=== PATIENT | female | born 1945 | race Caucasian/White ===

== ENCOUNTER 2017-11-01 12:40 | Inpatient (IN) | payer MEDICARE, BC ==
[~2017-11-01] VITALS: Ht 154.9 cm; Wt 55.4 kg
[~2017-11-01 12:40] MED LIST: ASPI-496 PO; ATOR10TA9 PO; CALC1CAP8 PO; CRAN500T2 PO; ENAL20TA PO; FURO-93 PO; GARL10002 PO; IMIP50TA3 PO; MULT-257 PO; NADO40TA PO; SUMA50TA4 PO; VITA PO
[2017-11-01] MEDS ORDERED: THIA50TA PO (12:59)
[2017-11-01] MEDS ORDERED: ASPI-515 PO (12:59)
[2017-11-01 13:16] LABS: BASOPHILS # (AUTO) 0.02 x10^3/uL (0-0.1); BASOPHILS % (AUTO) 0 % (0-1); EOSINOPHILS # (AUTO) 0.03 x10^3/uL (0-0.4); EOSINOPHILS % (AUTO) 0 % (1-7); LYMPHOCYTES # (AUTO) 1.46 x10^3/uL (1-3.4); LYMPHOCYTES % (AUTO) 21 % (22-44); MD NO; MEAN CORPUSCULAR HEMOGLOBIN 31.8 pg (27.0-34.8); MEAN CORPUSCULAR HGB CONC 34.2 g/dL (32.4-35.8); MEAN CORPUSCULAR VOLUME 93.1 fL (80-100); MEAN PLATELET VOLUME 8.5 fL (7.4-10.4); MONOCYTES # (AUTO) 0.61 x10^3/uL (0.2-0.8); MONOCYTES % (AUTO) 9 % (2-9); NEUTROPHILS # (AUTO) 4.89 x10^3/uL (1.8-6.8); NEUTROPHILS % (AUTO) 70 % (42-75); PLATELET COUNT 194 x10^3/uL (130-400); RED BLOOD COUNT 4.12 x10^6/uL (3.82-5.3); RED CELL DISTRIBUTION WIDTH 14.1 % (9.6-15.2)
[2017-11-01 13:25] LABS: INTERNATIONAL NORMALIZED RATIO 0.98 (0.93-1.1); PROTHROMBIN TIME 10.2 Seconds (9.6-11.5)
[2017-11-01 13:29] LABS: ALBUMIN 3.5 g/dL (3.4-5.0); ANION GAP 10 mmol/L (5-15); CALCIUM 8.6 mg/dL (8.5-10.1); CHLORIDE 111 mmol/L (98-107); CREATININE 0.71 mg/dL (0.55-1.02)
[2017-11-01 13:33] LABS: TROPONIN I 0.069 ng/mL (0.000-0.045)
[2017-11-01] MEDS ORDERED: SODIUM CHLORIDE FLUSH 10ML SYR IVF PRN (14:00)
[2017-11-01] MEDS ORDERED: POLYETHYLENE GLYCOL 17 GM PACKET PO PRN (14:30)
[2017-11-01] MEDS ORDERED: DOCUSATE 100 MG CAPSULE PO PRN (14:30)
[2017-11-01] MEDS ORDERED: BISACODYL 10 MG SUPP PR PRN (14:30)
[2017-11-01] MEDS ORDERED: ONDANSETRON 2MG/ML, 2ML IVPush PRN (14:30)
[2017-11-01] MEDS ORDERED: hydrALAzine 20 MG/ML, 1ML IVPush PRN (14:30)
[2017-11-01 14:50] VITALS: BP 131/68
[2017-11-01] MEDS: FUROSEMIDE 20 MG/2 ML IV SCH (15:00)
[2017-11-01] MEDS ORDERED: SODIUM CHLORIDE 0.9% 1,000 ML IV SCH (15:52)
[2017-11-01] MEDS ORDERED: MIDAZOLAM 1 MG/ML, 5ML ONE (16:13)
[2017-11-01] MEDS ORDERED: FENTANYL PF 100 MCG/2ML ONE (16:14)
[2017-11-01] MEDS ORDERED: CEFAZOLIN 1,000 MG ONE (16:14)
[2017-11-01] MEDS ORDERED: CEFAZOLIN PMX 1GM/50ML 50 ML ONE (16:14)
[2017-11-01] MEDS ORDERED: LIDOCAINE/PF 1%, 30ML ONE (16:14)
[2017-11-01] MEDS ORDERED: HYDROcodone/APAP 5/325 TABLET PO PRN (18:00)
[2017-11-01] MEDS ORDERED: ACETAMINOPHEN 325 MG TABLET PO PRN (18:00)
[2017-11-01] MEDS ORDERED: HOLD MEDICATION MC PRN (18:00)
[2017-11-01] MEDS ORDERED: ZOLPIDEM 5MG TABLET PO PRN (18:00)
[2017-11-01 18:40] VITALS: BP 137/67
[2017-11-01 18:57] LABS: TROPONIN I 0.396 ng/mL (0.000-0.045)
[2017-11-01] MEDS: ATORVASTATIN 10 MG TABLET PO SCH (20:37)
[2017-11-02] MEDS: CEFAZOLIN PMX 1GM/50ML 50 ML IVPB SCH ×2 (00:32→12:23)
[2017-11-02 00:53] VITALS: BP 162/89
[2017-11-02 04:55] LABS: BASOPHILS # (AUTO) 0.01 x10^3/uL (0-0.1); BASOPHILS % (AUTO) 0 % (0-1); EOSINOPHILS # (AUTO) 0.09 x10^3/uL (0-0.4); EOSINOPHILS % (AUTO) 1 % (1-7); LYMPHOCYTES # (AUTO) 1.24 x10^3/uL (1-3.4); LYMPHOCYTES % (AUTO) 16 % (22-44); MD NO; MEAN CORPUSCULAR HEMOGLOBIN 31.6 pg (27.0-34.8); MEAN CORPUSCULAR HGB CONC 33.7 g/dL (32.4-35.8); MEAN CORPUSCULAR VOLUME 93.8 fL (80-100); MEAN PLATELET VOLUME 8.5 fL (7.4-10.4); MONOCYTES # (AUTO) 0.67 x10^3/uL (0.2-0.8); MONOCYTES % (AUTO) 9 % (2-9); NEUTROPHILS % (AUTO) 74 % (42-75); PLATELET COUNT 191 x10^3/uL (130-400); RED BLOOD COUNT 4.29 x10^6/uL (3.82-5.3); RED CELL DISTRIBUTION WIDTH 14.2 % (9.6-15.2)
[2017-11-02 05:02] LABS: ANION GAP 6 mmol/L (5-15); CALCIUM 8.4 mg/dL (8.5-10.1); CHLORIDE 108 mmol/L (98-107)
[2017-11-02 05:06] LABS: CHOL/HDL RATIO 2.4; CHOLESTEROL, TOTAL 132 mg/dL (140-239); HDL CHOL % 42 % (28-40); HDL CHOLESTEROL (DIRECT) 56 mg/dL (40-60); LDL CHOLESTEROL,CALCULATED 43 mg/dL (54-169); LDL/HDL RATIO 0.8 (0.5-3.0); TRIGLYCERIDES 165 mg/dL (50-200); VLDL CHOLESTEROL 33 mg/dL (0-25)
[2017-11-02 06:52] VITALS: BP 167/67
[2017-11-02] MEDS: MULTIVITAMIN 1 TABLET PO SCH (08:29)
[2017-11-02] MEDS: THIAMINE 100MG TABLET PO SCH (08:29)
[2017-11-02] MEDS: ACETAMINOPHEN 325 MG TABLET PO PRN (08:38)
[2017-11-02] MEDS ORDERED: ASPIRIN 81 MG TABLET EC PO SCH (09:00)
[2017-11-02] MEDS ORDERED: REGADENOSON 0.4 MG/5 ML SYRINGE ONE (10:25)
[2017-11-02 12:12] LABS: TROPONIN I 0.859 ng/mL (0.000-0.045)
[2017-11-02 12:22] VITALS: BP 133/80
[2017-11-02] MEDS: FUROSEMIDE 20 MG/2 ML IV SCH (12:23)
[2017-11-02] MEDS: METOPROLOL TARTRATE 25 MG TABLET PO SCH ×2 (12:25→20:25)
[2017-11-02] MEDS: ASPIRIN 81 MG TABLET EC PO SCH (12:25)
[2017-11-02 20:00] VITALS: BP 160/93
[2017-11-02] MEDS: ATORVASTATIN 10 MG TABLET PO SCH (20:25)
[2017-11-03 01:26] VITALS: BP 145/80
[2017-11-03 04:34] LABS: BASOPHILS # (AUTO) 0.02 x10^3/uL (0-0.1); BASOPHILS % (AUTO) 0 % (0-1); EOSINOPHILS # (AUTO) 0.14 x10^3/uL (0-0.4); EOSINOPHILS % (AUTO) 2 % (1-7); LYMPHOCYTES # (AUTO) 1.48 x10^3/uL (1-3.4); LYMPHOCYTES % (AUTO) 21 % (22-44); MD NO; MEAN CORPUSCULAR HEMOGLOBIN 31.4 pg (27.0-34.8); MEAN CORPUSCULAR HGB CONC 33.9 g/dL (32.4-35.8); MEAN CORPUSCULAR VOLUME 92.7 fL (80-100); MEAN PLATELET VOLUME 8.3 fL (7.4-10.4); MONOCYTES # (AUTO) 0.74 x10^3/uL (0.2-0.8); MONOCYTES % (AUTO) 11 % (2-9); NEUTROPHILS # (AUTO) 4.67 x10^3/uL (1.8-6.8); NEUTROPHILS % (AUTO) 66 % (42-75); PLATELET COUNT 182 x10^3/uL (130-400); RED BLOOD COUNT 4.26 x10^6/uL (3.82-5.3); RED CELL DISTRIBUTION WIDTH 13.8 % (9.6-15.2)
[2017-11-03 04:46] LABS: CHLORIDE 107 mmol/L (98-107)
[2017-11-03 04:51] LABS: ANION GAP 7 mmol/L (5-15); CALCIUM 8.2 mg/dL (8.5-10.1); CREATININE 0.66 mg/dL (0.55-1.02)
[2017-11-03 05:41] VITALS: BP 146/79
[2017-11-03] MEDS: METOPROLOL TARTRATE 25 MG TABLET PO SCH (05:44)
[2017-11-03 07:15] VITALS: BP 135/86
[2017-11-03] MEDS ORDERED: POTASSIUM CHLORIDE 20 MEQ TAB.ER.PRT PO ONE (08:30)
[2017-11-03] MEDS: FUROSEMIDE 20 MG/2 ML IV SCH (09:57)
[2017-11-03] MEDS: ASPIRIN 81 MG TABLET EC PO SCH (09:59)
[2017-11-03] MEDS: MULTIVITAMIN 1 TABLET PO SCH (09:59)
[2017-11-03] MEDS: THIAMINE 100MG TABLET PO SCH (09:59)
[2017-11-03] MEDS: ACETAMINOPHEN 325 MG TABLET PO PRN (10:07)
[2017-11-03] MEDS ORDERED: POTA10TA11 PO (10:09)
[2017-11-03] MEDS ORDERED: FURO-93 PO (10:09)
== END 2017-11-03 14:30 | disposition home or self-care (01) | DRG 242 ==
LOC: ED 13:47 → EDIP 13:59 → 5SO 14:40 → DCLOUNGE 11-03 14:08
PROVIDERS: ADMIT Hospitalist; ATTEND Hospitalist
PROC: 02H63JZ Insertion of Pacemaker Lead into Right Atrium, Percutaneous Approach (ICD-10-PCS; principal; 2017-11-01)
PROC: 0JH606Z Insertion of Pacemaker, Dual Chamber into Chest Subcutaneous Tissue and Fascia, Open Approach (ICD-10-PCS; 2017-11-01)
PROC: 02HK3JZ Insertion of Pacemaker Lead into Right Ventricle, Percutaneous Approach (ICD-10-PCS; 2017-11-01)
DX: I21.4 Non-ST elevation (NSTEMI) myocardial infarction (principal); I50.33 Acute on chronic diastolic (congestive) heart failure; I44.1 Atrioventricular block, second degree; F32.9 Major depressive disorder, single episode, unspecified; E78.5 Hyperlipidemia, unspecified; I35.1 Nonrheumatic aortic (valve) insufficiency; I11.0 Hypertensive heart disease with heart failure; E87.6 Hypokalemia; G43.909 Migraine, unspecified, not intractable, without status migrainosus; E78.00 Pure hypercholesterolemia, unspecified; I77.819 Aortic ectasia, unspecified site; Z82.49 Family history of ischemic heart disease and other diseases of the circulatory system; Z83.3 Family history of diabetes mellitus; Z87.891 Personal history of nicotine dependence; Z79.899 Other long term (current) drug therapy; Z79.1 Long term (current) use of non-steroidal anti-inflammatories (NSAID)
CPT/HCPCS: 33208; 36415; 71045; 78452; 80048; 80061; 82040; 83735; 84484; 85025; 85610; 93005; 93017; 93306; 96374; 99156; 99157; C1779; C1785; C1892; J0690; J2250; J2785; J3010; J3490; A9502; C9898; J1940

== ENCOUNTER → 2019-12-23 | Outpatient (CLI) | payer MEDICARE, BC ==
[~2019-12-23] MED LIST changes: +ASPI-515 PO; -ENAL20TA PO; +ENAL20TA9 PO; -NADO40TA PO; +NADO40TA2 PO; +POTA10TA11 PO; +THIA50TA4 PO
== END | disposition home or self-care (01) ==
LOC: CFH 06:43
PROVIDERS: ATTEND Internal Medicine Cardiovascular Disease
DX: I08.3 Combined rheumatic disorders of mitral, aortic and tricuspid valves (principal); I10 Essential (primary) hypertension; E78.5 Hyperlipidemia, unspecified
CPT/HCPCS: 93306

== ENCOUNTER 2020-10-11 09:42 | Day surgery (SDC) | payer MEDICARE, BC ==
[~2020-10-11] VITALS: Ht 154.9 cm; Wt 54.0 kg
[~2020-10-11 09:42] MED LIST changes: -ASPI-515 PO; +ASPI-963 PO; -CRAN500T2 PO; +CRAN500T3 PO
[2020-10-11] MEDS ORDERED: PROPOFOL 10 MG/ML, 20ML ONE (10:02)
[2020-10-11] MEDS ORDERED: FURO40TA6 PO (10:22)
[2020-10-11] MEDS ORDERED: ASCO500T8 PO (10:22)
[2020-10-11] MEDS ORDERED: POTA10TA6 PO (10:22)
[2020-10-11] MEDS ORDERED: VITA1CAP PO (10:22)
[2020-10-11] MEDS ORDERED: SPIR25TA5 PO (10:23)
[2020-10-11] MEDS ORDERED: AMLO-211 PO (10:23)
[2020-10-11] MEDS ORDERED: LOSA100T14 PO (10:23)
[2020-10-11] MEDS ORDERED: SODIUM CHLORIDE 0.9% 1,000 ML IV ONE (10:30)
[2020-10-11 10:31] VITALS: BP 116/57
[2020-10-11 10:39] LABS: BASOPHILS % (AUTO) 1 % (0-1); EOSINOPHILS % (AUTO) 2 % (1-7); LYMPHOCYTES % (AUTO) 25 % (22-44); MEAN CORPUSCULAR HEMOGLOBIN 32.6 pg (27.0-34.8); MEAN CORPUSCULAR HGB CONC 33.6 g/dL (32.4-35.8); MEAN PLATELET VOLUME 8.7 fL (7.4-10.4); MONOCYTES % (AUTO) 10 % (2-9); NEUTROPHILS % (AUTO) 62 % (42-75); PLATELET COUNT 222 x10^3/uL (130-400); RED CELL DISTRIBUTION WIDTH 13.9 % (9.6-15.2)
[2020-10-11 10:49] LABS: ALANINE AMINOTRANSFERASE 40 U/L (12-78); ALBUMIN 4.1 g/dL (3.4-5.0); ANION GAP 9 mmol/L (5-15); CALCIUM 9.5 mg/dL (8.5-10.1); CHLORIDE 106 mmol/L (98-107); CREATININE 0.86 mg/dL (0.55-1.02)
[2020-10-11 10:51] LABS: ALKALINE PHOSPHATASE 50 U/L (45-117); BILIRUBIN,TOTAL 0.8 mg/dL (0.2-1.0); TOTAL PROTEIN 8.1 g/dL (6.4-8.2)
[2020-10-11] MEDS ORDERED: FENTANYL PF 100 MCG/2ML ONE (12:18)
[2020-10-11] MEDS ORDERED: VERAPAMIL 2.5 MG/ML, 2ML ONE (12:19)
[2020-10-11] MEDS ORDERED: LIDOCAINE-MPF 1%, 5ML ONE (12:19)
[2020-10-11] MEDS ORDERED: HEPARIN 1,000 UNITS/ML, 10ML ONE (12:19)
[2020-10-11] MEDS ORDERED: MIDAZOLAM 1 MG/ML, 2ML ONE (12:23)
== END 2020-10-11 15:48 | disposition home or self-care (01) ==
LOC: CACL 09:42
PROVIDERS: ATTEND Internal Medicine Cardiovascular Disease
DX: I34.0 Nonrheumatic mitral (valve) insufficiency (principal); I25.10 Atherosclerotic heart disease of native coronary artery without angina pectoris; I10 Essential (primary) hypertension; E78.5 Hyperlipidemia, unspecified; Z79.82 Long term (current) use of aspirin; Z79.899 Other long term (current) drug therapy; Z20.822 Contact with and (suspected) exposure to COVID-19; Z95.0 Presence of cardiac pacemaker
CPT/HCPCS: 36415; 80053; 85025; 87635; 93312; 93321; 93325; 93460; 99156; 99157; C1769; C1894; J1644; J2250; J2704; J3010; Q9967

== ENCOUNTER 2020-11-28 13:30 | Inpatient (IN) | payer MEDICARE, BC ==
[~2020-11-28] VITALS: Ht 156.2 cm; Wt 55.0 kg
[~2020-11-28 13:30] MED LIST changes: +AMLO-211 PO; +ASCO500T8 PO; +FURO40TA6 PO; +LOSA100T14 PO; +POTA10TA6 PO; +SPIR25TA5 PO; +VITA1CAP PO
[2021-01-02] MEDS ORDERED: SODIUM CHLORIDE 0.9% 1,000ML IV SCH (06:30)
[2021-01-02] MEDS ORDERED: ONDANSETRON 2MG/ML, 2ML IV PRN ×2 (06:30→09:30)
[2021-01-02] MEDS ORDERED: Calcium PO (06:38)
[2021-01-02 06:41] VITALS: BP 108/54
[2021-01-02 07:18] LABS: BASOPHILS % (AUTO) 0 % (0-1); EOSINOPHILS % (AUTO) 2 % (1-7); LYMPHOCYTES % (AUTO) 23 % (22-44); MEAN CORPUSCULAR HGB CONC 34.5 g/dL (32.4-35.8); MEAN PLATELET VOLUME 8.2 fL (7.4-10.4); MONOCYTES % (AUTO) 11 % (2-9); NEUTROPHILS % (AUTO) 64 % (42-75); PLATELET COUNT 215 x10^3/uL (130-400); RED BLOOD COUNT 4.17 x10^6/uL (3.82-5.3); RED CELL DISTRIBUTION WIDTH 13.7 % (9.6-15.2)
[2021-01-02 07:20] LABS: ANION GAP 6 mmol/L (5-15); CALCIUM 9.6 mg/dL (8.5-10.1); CHLORIDE 107 mmol/L (98-107); CREATININE 0.84 mg/dL (0.55-1.02)
[2021-01-02] MEDS ORDERED: FENTANYL PF 250 MCG/5ML ONE (07:28)
[2021-01-02 07:35] LABS: INTERNATIONAL NORMALIZED RATIO 0.98 (0.93-1.1); PROTHROMBIN TIME 10.5 Seconds (9.6-11.5)
[2021-01-02] MEDS ORDERED: PROTAMINE SULFATE 10 MG/ML, 5ML ONE (09:15)
[2021-01-02] MEDS ORDERED: HEPARIN 1,000 UNITS/ML, 10ML ONE ×2 (09:24)
[2021-01-02] MEDS ORDERED: SUGAMMADEX 200 MG/2 ML IVPush ONE (09:25)
[2021-01-02] MEDS: ASPIRIN 81 MG TABLET EC PO SCH (09:30)
[2021-01-02] MEDS ORDERED: SUMATRIPTAN 50 MG TABLET PO SCH (09:30)
[2021-01-02] MEDS ORDERED: hydrALAzine 20 MG/ML, 1ML IVPush PRN (09:30)
[2021-01-02] MEDS ORDERED: MAALOX/HYOSCYAMINE/LIDOCAINE 45 ML BTL PO PRN (09:30)
[2021-01-02] MEDS ORDERED: LABETALOL 5MG/ML, 20ML IVPush PRN (09:30)
[2021-01-02] MEDS: SODIUM CHLORIDE 0.9% 1,000 ML IV SCH ×2 (09:30→17:25)
[2021-01-02] MEDS ORDERED: ACETAMINOPHEN 325 MG TABLET PO PRN (09:30)
[2021-01-02] MEDS ORDERED: HYDROcodone/APAP 5/325 TABLET PO PRN (09:30)
[2021-01-02] MEDS: CLOPIDOGREL 75 MG TABLET PO SCH (13:30)
[2021-01-02 14:05] VITALS: BP 101/60
[2021-01-02 19:06] VITALS: BP 91/54
[2021-01-02 20:56] VITALS: BP 110/65
[2021-01-02] MEDS ORDERED: AMLODIPINE 10 MG TAB PO SCH (21:00)
[2021-01-02] MEDS: NADOLOL 20 MG TABLET PO SCH (21:00)
[2021-01-02] MEDS ORDERED: ATORVASTATIN 10 MG TABLET PO SCH (21:00)
[2021-01-02 23:55] VITALS: BP 97/59
[2021-01-03 02:30] VITALS: BP 94/53
[2021-01-03 06:03] LABS: ANION GAP 5 mmol/L (5-15); CHLORIDE 110 mmol/L (98-107); CREATININE 0.65 mg/dL (0.55-1.02)
[2021-01-03 06:16] LABS: BASOPHILS % (AUTO) 0 % (0-1); EOSINOPHILS % (AUTO) 0 % (1-7); LYMPHOCYTES % (AUTO) 10 % (22-44); MEAN CORPUSCULAR HEMOGLOBIN 33.3 pg (27.0-34.8); MEAN CORPUSCULAR HGB CONC 34.4 g/dL (32.4-35.8); MEAN PLATELET VOLUME 8.6 fL (7.4-10.4); MONOCYTES % (AUTO) 9 % (2-9); NEUTROPHILS % (AUTO) 81 % (42-75); PLATELET COUNT 176 x10^3/uL (130-400); RED BLOOD COUNT 3.39 x10^6/uL (3.82-5.3); RED CELL DISTRIBUTION WIDTH 13.6 % (9.6-15.2)
[2021-01-03 07:02] VITALS: BP 110/64
[2021-01-03] MEDS ORDERED: LOSARTAN 100 MG TAB PO SCH (09:00)
[2021-01-03] MEDS ORDERED: FUROSEMIDE 40 MG TABLET PO SCH (09:00)
[2021-01-03] MEDS: NADOLOL 20 MG TABLET PO SCH (09:00)
[2021-01-03] MEDS ORDERED: SPIRONOLACTONE 25 MG TABLET PO SCH (09:00)
[2021-01-03] MEDS ORDERED: POTASSIUM CHLORIDE 10 MEQ TABLET.ER PO SCH (09:00)
[2021-01-03] MEDS: ASPIRIN 81 MG TABLET EC PO SCH (11:02)
[2021-01-03] MEDS: CLOPIDOGREL 75 MG TABLET PO SCH (11:02)
[2021-01-03] MEDS ORDERED: CLOP75TA PO (11:27)
== END 2021-01-03 12:23 | disposition home or self-care (01) | DRG 267 ==
LOC: EDSTATUS 13:30 → ORIP 01-02 06:00 → 5SO 01-02 11:05
PROVIDERS: ADMIT Internal Medicine Cardiovascular Disease; ATTEND Internal Medicine Cardiovascular Disease
PROC: B24BZZ4 Ultrasonography of Heart with Aorta, Transesophageal (ICD-10-PCS; 2021-01-02)
PROC: 02UG3JZ Supplement Mitral Valve with Synthetic Substitute, Percutaneous Approach (ICD-10-PCS; principal; 2021-01-02 07:30)
DX: I08.0 Rheumatic disorders of both mitral and aortic valves (principal); Z00.6 Encounter for examination for normal comparison and control in clinical research program; I50.22 Chronic systolic (congestive) heart failure; Z20.822 Contact with and (suspected) exposure to COVID-19; D64.9 Anemia, unspecified; D72.829 Elevated white blood cell count, unspecified; I11.0 Hypertensive heart disease with heart failure; E78.5 Hyperlipidemia, unspecified; Z95.0 Presence of cardiac pacemaker
CPT/HCPCS: 36415; 80048; 83880; 85025; 85347; 85610; 86850; 86900; 87635; 93005; 93306; 93355; G0378; J1644; J2720; J3010